=== PATIENT | female | born 1965 | race Hispanic/Latino ===

== ENCOUNTER 2017-05-10 14:29 | Emergency (ER) | payer MEDICARE ==
[~2017-05-10] VITALS: Ht 167.6 cm; Wt 100.0 kg
[~2017-05-10 14:29] MED LIST: ALEVE220 M1 OR; AMOXICILLIN500 MG OR; AUGMENTIN875TAB PO; CELEBREX100 MG PO; CELEBREX200 MG PO; FIORICET PO; LORTAB 5/3255 MG PO; NAPROSYN375 MG PO; NITROGLYCER0.4 MG SL; NO HOME MEDS; ROBITUSSIN AC10 ML OR; TORADOL OR; TYLENOL PM OR; ULTRAM50 MG OR; VICODIN OR; no home meds
[2017-05-10] MEDS ORDERED: LORTAB 10-325 M1 TAB PO (16:59)
[2017-05-10] MEDS ORDERED: FLEXERIL PO (16:59)
[2017-05-10 17:12] VITALS: BP 129/62
== END 2017-05-10 17:16 | disposition home or self-care (01) ==
LOC: ED 14:29
DX: S39.012A Strain of muscle, fascia and tendon of lower back, initial encounter (principal); M47.817 Spondylosis without myelopathy or radiculopathy, lumbosacral region; M54.42 Lumbago with sciatica, left side; I10 Essential (primary) hypertension

== ENCOUNTER 2017-08-27 21:01 | Inpatient (IN) | payer MEDICARE ==
[~2017-08-27] VITALS: Ht 167.6 cm; Wt 95.6 kg
[~2017-08-27 21:01] MED LIST changes: +FLEXERIL PO; +LORTAB 10-325 M1 TAB PO
[2017-08-27 21:53] LABS: HEMATOCRIT 43.9 % (37.0-47.0); HEMOGLOBIN 14.7 g/dl (12.0-16.0); IMMATURE GRANULOCYTES 0.9 % (0.0-1.0); MEAN CELL VOLUME 93.4 fL CALC (80.0-100.0); MEAN CORPUSCULAR HGB 31.3 pG CALC (26.0-32.0); MEAN CORPUSCULAR HGB CONC 33.5 g/L CALC (32.0-36.0); NEUT# 6.19 thou/uL (2.00-7.15); RED BLOOD COUNT 4.7 mill/uL (4.20-5.60); RED CELL DISTRI WIDTH 12.5 % (11.5-15.5)
[2017-08-27 22:04] LABS: ALBUMIN 4.9 g/dL (3.2-5.0); ALKALINE PHOSPHATASE 58 u/l (38-126); AMYLASE 66 u/l (30-110); ANION GAP 21 (6-22 (CALC)); BILIRUBIN, TOTAL 0.5 mg/dL (0.0-1.4); BUN 8 mg/dL (7-17); BUN/CREATININE RATIO 12 (12-20 (CALC)); CALCIUM 10.2 mg/dL (8.4-10.2); CARBON DIOXIDE 26 mmol/l (22-30); CHLORIDE 102 mmol/l (95-108); CREATININE 0.7 mg/dL (0.5-1.0); GFR > 60 ML/MIN (>=60 (CALC)); GFR FOR AFR.AMER. > 60 ML/MIN (>=60 (CALC)); GLUCOSE 85 mg/dL (65-105); LIPASE 172 u/l (23-300); POTASSIUM 4.2 mmol/l (3.5-5.1); SGOT/AST 73 u/l (14-36); SGPT/ALT 80 u/l (9-52); SODIUM 145 mmol/l (137-146); TOTAL PROTEIN 8.5 g/dL (6.3-8.2)
[2017-08-27 23:16] LABS: URINE BILIRUBIN - DIPSTICK NEGATIVE (NEGATIVE); URINE BLOOD DIPSTICK NEGATIVE (NEGATIVE); URINE CLARITY SLIGHT CLOUDY; URINE COLOR YELLOW; URINE GLUCOSE - DIPSTICK NEGATIVE (NEGATIVE); URINE KETONE NEGATIVE (NEGATIVE); URINE LEUK ESTERASE NEGATIVE (NEGATIVE); URINE NITRITE - DIPSTICK NEGATIVE (Negative); URINE PH 6.5 (4.5-8.0); URINE PROTEIN - DIPSTICK NEGATIVE (NEG-TRACE); URINE UROBILINOGEN - DIPSTICK 0.2 E.U./dL (0.2)
[2017-08-28 02:10] VITALS: BP 141/82
[2017-08-28 04:48] VITALS: BP 125/73
[2017-08-28 08:04] VITALS: BP 118/70
[2017-08-28] MEDS ORDERED: TYLENOL # 31 TA1 PO (13:29)
[2017-08-28 16:50] VITALS: BP 128/81
[2017-08-28 20:00] VITALS: BP 122/78
[2017-08-28 22:00] VITALS: BP 139/83
[2017-08-29 04:52] VITALS: BP 139/68
[2017-08-29 05:47] LABS: HEMATOCRIT 38.6 % (37.0-47.0); HEMOGLOBIN 12.6 g/dl (12.0-16.0); MEAN CELL VOLUME 95.3 fL CALC (80.0-100.0); MEAN CORPUSCULAR HGB 31.1 pG CALC (26.0-32.0); MEAN CORPUSCULAR HGB CONC 32.6 g/L CALC (32.0-36.0); RED BLOOD COUNT 4.05 mill/uL (4.20-5.60); RED CELL DISTRI WIDTH 12.9 % (11.5-15.5)
[2017-08-29 05:50] LABS: ANION GAP 15 (6-22 (CALC)); BUN 6 mg/dL (7-17); BUN/CREATININE RATIO 9 (12-20 (CALC)); CALCIUM 9.4 mg/dL (8.4-10.2); CARBON DIOXIDE 27 mmol/l (22-30); CHLORIDE 101 mmol/l (95-108); CREATININE 0.6 mg/dL (0.5-1.0); GFR > 60 ML/MIN (>=60 (CALC)); GFR FOR AFR.AMER. > 60 ML/MIN (>=60 (CALC)); GLUCOSE 99 mg/dL (65-105); POTASSIUM 4.1 mmol/l (3.5-5.1); SODIUM 139 mmol/l (137-146)
[2017-08-29 08:05] VITALS: BP 118/79
[2017-08-29 15:23] VITALS: BP 140/67
[2017-08-29 19:19] VITALS: BP 126/83
[2017-08-29 22:00] VITALS: BP 123/76
[2017-08-30 04:51] VITALS: BP 117/71
[2017-08-30 05:44] LABS: HEMATOCRIT 39.4 % (37.0-47.0); MEAN CELL VOLUME 94.3 fL CALC (80.0-100.0); MEAN CORPUSCULAR HGB 31.1 pG CALC (26.0-32.0); RED BLOOD COUNT 4.18 mill/uL (4.20-5.60); RED CELL DISTRI WIDTH 12.6 % (11.5-15.5)
[2017-08-30 08:09] VITALS: BP 119/56
[2017-08-30] MEDS ORDERED: TRAMADOL HCL50 MG PO (11:28)
[2017-08-30] MEDS ORDERED: FLORASTOR250 M1 PO (11:28)
[2017-08-30] MEDS ORDERED: CIPROFLOXACN500 MG PO (11:28)
[2017-08-30] MEDS ORDERED: METRONIDAZOL500 MG PO (11:28)
== END 2017-08-30 17:52 | disposition home or self-care (01) | DRG 392 ==
LOC: ED 21:01 → ED-I 08-28 01:10 → ED 08-28 01:25 → MS2 08-28 01:26
PROVIDERS: Emergency Medicine; ADMIT Internal Medicine; ATTEND Internal Medicine
DX: K57.32 Diverticulitis of large intestine without perforation or abscess without bleeding (principal); D72.829 Elevated white blood cell count, unspecified; G89.29 Other chronic pain; N83.201 Unspecified ovarian cyst, right side; N83.202 Unspecified ovarian cyst, left side; M54.9 Dorsalgia, unspecified

== ENCOUNTER 2018-02-19 04:13 | Emergency (ER) | payer MEDICARE, MEDICAID ==
[~2018-02-19] VITALS: Ht 167.6 cm; Wt 89.8 kg
[~2018-02-19 04:13] MED LIST changes: +CIPROFLOXACN500 MG PO; +FLORASTOR250 M1 PO; +METRONIDAZOL500 MG PO; +TRAMADOL HCL50 MG PO; +TYLENOL # 31 TA1 PO
[2018-02-19] MEDS ORDERED: NEURONTIN300 MG PO (04:21)
[2018-02-19] MEDS ORDERED: LORTAB 1010 MG PO (04:22)
[2018-02-19 05:50] LABS: HEMATOCRIT 41.5 % (37.0-47.0); HEMOGLOBIN 13.5 g/dl (12.0-16.0); MEAN CELL VOLUME 91.4 fL CALC (80.0-100.0); MEAN CORPUSCULAR HGB 29.7 pG CALC (26.0-32.0); MEAN CORPUSCULAR HGB CONC 32.5 g/L CALC (32.0-36.0); NEUT# 3.71 thou/uL (2.00-7.15); RED BLOOD COUNT 4.54 mill/uL (4.20-5.60); RED CELL DISTRI WIDTH 13.3 % (11.5-15.5)
[2018-02-19] MEDS ORDERED: TUSSIONEX PENNKI1 ML PO (05:54)
[2018-02-19 06:05] VITALS: BP 133/74
== END 2018-02-19 06:08 | disposition home or self-care (01) ==
LOC: ED 04:13
PROVIDERS: Family Medicine
DX: B34.9 Viral infection, unspecified (principal)

== ENCOUNTER 2019-02-08 05:22 | Emergency (ER) | payer MEDICARE, MEDICAID ==
[~2019-02-08] VITALS: Ht 167.6 cm; Wt 68.0 kg
[~2019-02-08 05:22] MED LIST changes: +LORTAB 1010 MG PO; +NEURONTIN300 MG PO; +TUSSIONEX PENNKI1 ML PO
[2019-02-08] MEDS ORDERED: HYDROCODONE/ACE1 T10 PO (05:38)
[2019-02-08] MEDS ORDERED: NEURONTIN800 MG PO (05:39)
[2019-02-08] MEDS ORDERED: DICLOXACILL250 MG PO (05:40)
[2019-02-08 06:42] VITALS: BP 138/69
== END 2019-02-08 06:42 | disposition left against medical advice (07) ==
LOC: ED 05:22
DX: T85.49XA Other mechanical complication of breast prosthesis and implant, initial encounter (principal); G89.18 Other acute postprocedural pain; Z91.19 Patient's noncompliance with other medical treatment and regimen

== ENCOUNTER 2019-05-31 00:40 | Emergency (ER) | payer MEDICARE, MEDICAID ==
[~2019-05-31] VITALS: Ht 167.6 cm; Wt 73.0 kg
[~2019-05-31 00:40] MED LIST changes: +DICLOXACILL250 MG PO; +HYDROCODONE/ACE1 T10 PO; +NEURONTIN800 MG PO
[2019-05-31 02:29] VITALS: BP 147/87
== END 2019-05-31 02:30 | disposition home or self-care (01) ==
LOC: ED 00:40
DX: I10 Essential (primary) hypertension (principal); M19.011 Primary osteoarthritis, right shoulder

== ENCOUNTER 2019-09-19 15:05 | Emergency (ER) | payer MEDICARE, MEDICAID ==
[~2019-09-19] VITALS: Ht 167.6 cm; Wt 72.0 kg
[2019-09-19 15:29] LABS: HEMATOCRIT 38.6 % (37.0-47.0); HEMOGLOBIN 12.7 g/dl (12.0-16.0); IMMATURE GRANULOCYTES 0.2 % (0.0-5.0); MEAN CELL VOLUME 88.9 fL CALC (80.0-100.0); MEAN CORPUSCULAR HGB 29.3 pG CALC (26.0-32.0); MEAN CORPUSCULAR HGB CONC 32.9 g/L CALC (32.0-36.0); NEUT# 5.14 thou/uL (2.00-7.15); RED BLOOD COUNT 4.34 mill/uL (4.20-5.60); RED CELL DISTRI WIDTH 12.1 % (11.5-15.5)
[2019-09-19] MEDS ORDERED: LORCET 5-325 MG1 TAB PO (15:31)
[2019-09-19 15:47] LABS: ANION GAP 11 (6-22 (CALC)); BUN 14 mg/dL (7-17); BUN/CREATININE RATIO 25 (12-20 (CALC)); CARBON DIOXIDE 27 mmol/l (22-30); CHLORIDE 102 mmol/l (95-108); CREATININE 0.6 mg/dL (0.5-1.0); GFR > 60 ML/MIN (>=60 (CALC)); GFR FOR AFR.AMER. > 60 ML/MIN (>=60 (CALC)); POTASSIUM 3.5 mmol/l (3.5-5.1); SODIUM 137 mmol/l (137-146)
[2019-09-19] MEDS ORDERED: VISTARIL25 MG PO (16:31)
[2019-09-19 16:50] VITALS: BP 143/89
== END 2019-09-19 16:50 | disposition home or self-care (01) ==
LOC: ED 15:05
PROVIDERS: Family Medicine
DX: R07.9 Chest pain, unspecified (principal); I10 Essential (primary) hypertension; Z63.8 Other specified problems related to primary support group

== ENCOUNTER 2019-10-14 22:02 | Emergency (ER) | payer MEDICARE, MEDICAID ==
[~2019-10-14] VITALS: Ht 167.6 cm; Wt 73.2 kg
[~2019-10-14 22:02] MED LIST changes: +LORCET 5-325 MG1 TAB PO; +VISTARIL25 MG PO
[2019-10-14 23:37] LABS: HEMATOCRIT 37.4 % (37.0-47.0); HEMOGLOBIN 12.1 g/dl (12.0-16.0); IMMATURE GRANULOCYTES 0.4 % (0.0-5.0); MEAN CORPUSCULAR HGB 29.4 pG CALC (26.0-32.0); MEAN CORPUSCULAR HGB CONC 32.4 g/L CALC (32.0-36.0); NEUT# 4.75 thou/uL (2.00-7.15); RED BLOOD COUNT 4.11 mill/uL (4.20-5.60); RED CELL DISTRI WIDTH 12.7 % (11.5-15.5)
[2019-10-14 23:45] LABS: ALBUMIN 4.5 g/dL (3.2-5.0); ALKALINE PHOSPHATASE 65 u/l (38-126); ANION GAP 12 (6-22 (CALC)); BILIRUBIN, TOTAL 0.3 mg/dL (0.0-1.4); BUN 15 mg/dL (7-17); BUN/CREATININE RATIO 25 (12-20 (CALC)); CARBON DIOXIDE 32 mmol/l (22-30); CHLORIDE 98 mmol/l (95-108); CREATININE 0.6 mg/dL (0.5-1.0); GFR > 60 ML/MIN (>=60 (CALC)); GFR FOR AFR.AMER. > 60 ML/MIN (>=60 (CALC)); POTASSIUM 3.6 mmol/l (3.5-5.1); SGOT/AST 34 u/l (14-36); SODIUM 138 mmol/l (137-146); TOTAL PROTEIN 8.3 g/dL (6.3-8.2)
[2019-10-15] MEDS ORDERED: FLEXERIL PO (00:17)
[2019-10-15] MEDS ORDERED: ULTRAM50 MG PO (00:17)
[2019-10-15 00:33] VITALS: BP 132/72
[2019-11-05] MEDS ORDERED: LYRICA150 MG PO (12:00)
== END 2019-10-15 03:19 | disposition home or self-care (01) ==
LOC: ED 22:02
DX: M62.838 Other muscle spasm (principal); F41.9 Anxiety disorder, unspecified; I10 Essential (primary) hypertension

== ENCOUNTER 2020-07-02 18:21 | Emergency (ER) | payer MEDICARE, MEDICAID ==
[~2020-07-02] VITALS: Ht 167.6 cm; Wt 84.1 kg
[~2020-07-02 18:21] MED LIST changes: +LYRICA150 MG PO; +ULTRAM50 MG PO
[2020-07-02] MEDS ORDERED: PREDNISONE10 M2 PO (18:37)
[2020-07-02] MEDS ORDERED: BANOPHEN25 MG PO (18:38)
[2020-07-02] MEDS ORDERED: ACID CONTROL MA20 MG PO (18:42)
[2020-07-02 18:47] LABS: HEMOGLOBIN 13.3 g/dl (12.0-16.0); IMMATURE GRANULOCYTES 0.6 % (0.0-5.0); MEAN CELL VOLUME 90.7 fL CALC (80.0-100.0); MEAN CORPUSCULAR HGB 28.7 pG CALC (26.0-32.0); MEAN CORPUSCULAR HGB CONC 31.7 g/dL CAL (32.0-36.0); NEUT# 5.45 thou/uL (2.00-7.15); RED BLOOD COUNT 4.63 mill/uL (4.20-5.60); RED CELL DISTRI WIDTH 13.2 % (11.5-15.5)
[2020-07-02 19:06] LABS: ALBUMIN 4.3 g/dL (3.2-5.0); ALKALINE PHOSPHATASE 65 u/l (38-126); BUN 18 mg/dL (7-17); BUN/CREATININE RATIO 33 (12-20 (CALC)); CHLORIDE 103 mmol/l (95-108); CREATININE 0.5 mg/dL (0.5-1.0); ETHYL ALCOHOL 0 mg/dl (0-30); GFR > 60 ML/MIN (>=60 (CALC)); GFR FOR AFR.AMER. > 60 ML/MIN (>=60 (CALC)); LIPASE 255 u/l (23-300); POTASSIUM 4.2 mmol/l (3.5-5.1); SGOT/AST 54 u/l (14-36); SODIUM 135 mmol/l (137-146); TOTAL PROTEIN 7.9 g/dL (6.3-8.2)
[2020-07-02 19:07] LABS: ANION GAP 12 (6-22 (CALC)); BILIRUBIN, TOTAL 0.4 mg/dL (0.0-1.4); CARBON DIOXIDE 24 mmol/l (22-30)
[2020-07-02 19:32] LABS: URINE BILIRUBIN - DIPSTICK NEGATIVE (NEGATIVE); URINE BLOOD DIPSTICK NEGATIVE (NEGATIVE); URINE COLOR YELLOW; URINE GLUCOSE - DIPSTICK NEGATIVE (NEGATIVE); URINE KETONE TRACE mg/dL (NEGATIVE); URINE LEUK ESTERASE NEGATIVE (NEGATIVE); URINE NITRITE - DIPSTICK NEGATIVE (Negative); URINE PROTEIN - DIPSTICK NEGATIVE (NEG-TRACE); URINE SPECIFIC GRAVITY 1.025
[2020-07-02] MEDS ORDERED: IMITREX100 M1 PO (21:13)
[2020-07-02 21:22] VITALS: BP 114/56
== END 2020-07-02 21:23 | disposition left against medical advice (07) ==
LOC: ED 18:21
PROVIDERS: Family Medicine
DX: G43.409 Hemiplegic migraine, not intractable, without status migrainosus (principal); I10 Essential (primary) hypertension; Z11.59 Encounter for screening for other viral diseases
CPT/HCPCS: J2060

== ENCOUNTER 2020-10-15 16:47 | Emergency (ER) | payer MEDICARE, MEDICAID ==
[~2020-10-15] VITALS: Ht 167.6 cm; Wt 100.0 kg
[~2020-10-15 16:47] MED LIST changes: +ACID CONTROL MA20 MG PO; +BANOPHEN25 MG PO; +IMITREX100 M1 PO; +PREDNISONE10 M2 PO
[2020-10-15 17:34] LABS: HEMATOCRIT 39.7 % (37.0-47.0); HEMOGLOBIN 12.7 g/dl (12.0-16.0); IMMATURE GRANULOCYTES 0.3 % (0.0-5.0); MEAN CELL VOLUME 91.7 fL CALC (80.0-100.0); MEAN CORPUSCULAR HGB 29.3 pG CALC (26.0-32.0); NEUT# 5.65 thou/uL (2.00-7.15); RED BLOOD COUNT 4.33 mill/uL (4.20-5.60); RED CELL DISTRI WIDTH 13.1 % (11.5-15.5)
[2020-10-15 17:37] LABS: URINE BILIRUBIN - DIPSTICK NEGATIVE (NEGATIVE); URINE BLOOD DIPSTICK NEGATIVE (NEGATIVE); URINE COLOR YELLOW; URINE GLUCOSE - DIPSTICK NEGATIVE (NEGATIVE); URINE KETONE NEGATIVE (NEGATIVE); URINE LEUK ESTERASE NEGATIVE (NEGATIVE); URINE NITRITE - DIPSTICK NEGATIVE (Negative); URINE PH 5.5 (4.5-8.0); URINE PROTEIN - DIPSTICK NEGATIVE (NEG-TRACE); URINE SPECIFIC GRAVITY >=1.030; URINE UROBILINOGEN - DIPSTICK 0.2 E.U./dL (0.2)
[2020-10-15 17:43] LABS: ALBUMIN 4.4 g/dL (3.2-5.0); ALKALINE PHOSPHATASE 61 u/l (38-126); AMYLASE 93 u/l (30-110); ANION GAP 14 (6-22 (CALC)); BILIRUBIN, TOTAL 0.3 mg/dL (0.0-1.4); BUN 16 mg/dL (7-17); BUN/CREATININE RATIO 23 (12-20 (CALC)); CARBON DIOXIDE 24 mmol/l (22-30); CHLORIDE 104 mmol/l (95-108); CREATININE 0.7 mg/dL (0.5-1.0); GFR > 60 ML/MIN (>=60 (CALC)); GFR FOR AFR.AMER. > 60 ML/MIN (>=60 (CALC)); LIPASE 178 u/l (23-300); SGOT/AST 44 u/l (14-36); SODIUM 138 mmol/l (137-146); TOTAL PROTEIN 8.1 g/dL (6.3-8.2)
[2020-10-15] MEDS ORDERED: HYDROXYCHLOR200 M2 PO (19:05)
[2020-10-15] MEDS ORDERED: ELIQUIS5 MG PO (19:05)
[2020-10-15] MEDS ORDERED: FOLIC ACID5 MG PO (19:08)
[2020-10-16 00:15] VITALS: BP 136/76
== END 2020-10-16 00:17 | disposition home or self-care (01) ==
LOC: ED 16:47
DX: R10.11 Right upper quadrant pain (principal); R06.02 Shortness of breath; R19.01 Right upper quadrant abdominal swelling, mass and lump; I10 Essential (primary) hypertension
CPT/HCPCS: Q9967; S0164

== ENCOUNTER 2020-11-28 20:47 | Emergency (ER) | payer MEDICARE, MEDICAID ==
[~2020-11-28 20:47] MED LIST changes: +ELIQUIS5 MG PO; +FOLIC ACID5 MG PO; +HYDROXYCHLOR200 M2 PO
== END 2020-11-28 21:10 | disposition left against medical advice (07) ==
LOC: ED 20:47 → LWOBS 21:09 → ED 21:10
DX: Z91.19 Patient's noncompliance with other medical treatment and regimen (principal)

== ENCOUNTER 2021-06-24 12:17 | Emergency (ER) | payer MEDICARE, MEDICAID ==
[2021-06-24 13:13] LABS: URINE BILIRUBIN - DIPSTICK NEGATIVE (NEGATIVE); URINE BLOOD DIPSTICK NEGATIVE (NEGATIVE); URINE COLOR YELLOW; URINE GLUCOSE - DIPSTICK NEGATIVE (NEGATIVE); URINE KETONE NEGATIVE (NEGATIVE); URINE LEUK ESTERASE NEGATIVE (NEGATIVE); URINE PH 6.5 (4.5-8.0); URINE PROTEIN - DIPSTICK NEGATIVE (NEG-TRACE); URINE SPECIFIC GRAVITY 1.025
[2021-06-24 13:14] LABS: HEMATOCRIT 38.3 % (37.0-47.0); HEMOGLOBIN 11.8 g/dl (12.0-16.0); IMMATURE GRANULOCYTES 0.3 % (0.0-5.0); MEAN CELL VOLUME 91.8 fL CALC (80.0-100.0); MEAN CORPUSCULAR HGB 28.3 pG CALC (26.0-32.0); MEAN CORPUSCULAR HGB CONC 30.8 g/dL CAL (32.0-36.0); NEUT# 1.89 thou/uL (2.00-7.15); RED BLOOD COUNT 4.17 mill/uL (4.20-5.60); RED CELL DISTRI WIDTH 13.7 % (11.5-15.5)
[2021-06-24 13:35] LABS: D-DIMER 0.72 mg/L (0.19-0.60)
[2021-06-24 13:36] LABS: URINE NITRITE - DIPSTICK NEGATIVE (Negative)
[2021-06-24 13:38] LABS: ACT PARTIAL THROMBO TIME 27.8 SECONDS (20.0-32.5); ALKALINE PHOSPHATASE 61 u/l (38-126); AMYLASE 78 u/l (30-110); ANION GAP 11 (6-22 (CALC)); BUN 12 mg/dL (7-17); BUN/CREATININE RATIO 29 (12-20 (CALC)); CARBON DIOXIDE 23 mmol/l (22-30); CHLORIDE 107 mmol/l (95-108); CREATININE 0.4 mg/dL (0.5-1.0); GFR > 60 ML/MIN (>=60 (CALC)); GFR FOR AFR.AMER. > 60 ML/MIN (>=60 (CALC)); LIPASE 171 u/l (23-300); POTASSIUM 3.5 mmol/l (3.5-5.1); PROTHROMBIN TIME 10.3 SECONDS (9.0-12.5); SODIUM 137 mmol/l (137-146); TOTAL PROTEIN 6.6 g/dL (6.3-8.2)
[2021-06-24 13:43] LABS: ALBUMIN 3.4 g/dL (3.2-5.0); BILIRUBIN, TOTAL 0.1 mg/dL (0.0-1.4); SGOT/AST 171 u/l (14-36)
[2021-06-24 13:57] VITALS: BP 147/77
== END 2021-06-24 13:58 | disposition left against medical advice (07) ==
LOC: ED 12:17
DX: U07.1 COVID-19 (principal); J10.1 Influenza due to other identified influenza virus with other respiratory manifestations; R74.8 Abnormal levels of other serum enzymes; I10 Essential (primary) hypertension; M19.90 Unspecified osteoarthritis, unspecified site; Z91.19 Patient's noncompliance with other medical treatment and regimen

== ENCOUNTER 2021-07-01 12:09 | Observation (INO) | payer MEDICARE, MEDICAID ==
[2021-07-01 14:06] LABS: URINE BILIRUBIN - DIPSTICK NEGATIVE (NEGATIVE); URINE BLOOD DIPSTICK NEGATIVE (NEGATIVE); URINE COLOR YELLOW; URINE GLUCOSE - DIPSTICK NEGATIVE (NEGATIVE); URINE KETONE NEGATIVE (NEGATIVE); URINE LEUK ESTERASE NEGATIVE (NEGATIVE); URINE PROTEIN - DIPSTICK NEGATIVE (NEG-TRACE)
[2021-07-01 14:09] LABS: URINE NITRITE - DIPSTICK NEGATIVE (Negative)
[2021-07-01 14:26] LABS: IMMATURE GRANULOCYTES 0.5 % (0.0-5.0); MEAN CELL VOLUME 88.5 fL CALC (80.0-100.0); MEAN CORPUSCULAR HGB 28.3 pG CALC (26.0-32.0); MEAN CORPUSCULAR HGB CONC 31.9 g/dL CAL (32.0-36.0); NEUT# 3.19 thou/uL (2.00-7.15); RED BLOOD COUNT 5.06 mill/uL (4.20-5.60); RED CELL DISTRI WIDTH 13.4 % (11.5-15.5)
[2021-07-01 14:31] LABS: ALKALINE PHOSPHATASE 89 u/l (38-126); BUN 10 mg/dL (7-17); BUN/CREATININE RATIO 17 (12-20 (CALC)); CHLORIDE 95 mmol/l (95-108); CREATININE 0.6 mg/dL (0.5-1.0); GFR > 60 ML/MIN (>=60 (CALC)); GFR FOR AFR.AMER. > 60 ML/MIN (>=60 (CALC)); SGOT/AST 147 u/l (14-36); SODIUM 132 mmol/l (137-146)
[2021-07-01 14:35] LABS: ANION GAP 10 (6-22 (CALC)); BILIRUBIN, TOTAL 0.5 mg/dL (0.0-1.4); CARBON DIOXIDE 31 mmol/l (22-30); HEMATOCRIT 44.8 % (37.0-47.0); HEMOGLOBIN 14.3 g/dl (12.0-16.0)
[2021-07-01 16:38] LABS: C-REACTIVE PROTEIN 5.5 mg/dL (0-0.9)
[2021-07-02 06:30] LABS: HEMATOCRIT 41.5 % (37.0-47.0); HEMOGLOBIN 13.3 g/dl (12.0-16.0); IMMATURE GRANULOCYTES 0.6 % (0.0-5.0); MEAN CELL VOLUME 88.3 fL CALC (80.0-100.0); MEAN CORPUSCULAR HGB 28.3 pG CALC (26.0-32.0); NEUT# 2.13 thou/uL (2.00-7.15); RED BLOOD COUNT 4.7 mill/uL (4.20-5.60); RED CELL DISTRI WIDTH 13.1 % (11.5-15.5)
[2021-07-02 06:45] LABS: ALBUMIN 3.5 g/dL (3.2-5.0); ALKALINE PHOSPHATASE 78 u/l (38-126); ANION GAP 14 (6-22 (CALC)); BILIRUBIN, TOTAL 0.4 mg/dL (0.0-1.4); BUN 8 mg/dL (7-17); BUN/CREATININE RATIO 21 (12-20 (CALC)); C-REACTIVE PROTEIN 4.4 mg/dL (0-0.9); CARBON DIOXIDE 25 mmol/l (22-30); CHLORIDE 101 mmol/l (95-108); CREATININE 0.4 mg/dL (0.5-1.0); GFR > 60 ML/MIN (>=60 (CALC)); GFR FOR AFR.AMER. > 60 ML/MIN (>=60 (CALC)); POTASSIUM 4.5 mmol/l (3.5-5.1); SGOT/AST 89 u/l (14-36); SODIUM 136 mmol/l (137-146)
[2021-07-02 07:00] VITALS: BP 132/86
[2021-07-02 07:30] VITALS: BP 135/89
[2021-07-02] MEDS ORDERED: DOXYCYCL HYC100 MG PO (10:04)
[2021-07-02] MEDS ORDERED: DEXAMETHASON6 MG PO (10:04)
== END 2021-07-02 11:17 | disposition home or self-care (01) ==
LOC: ED 12:09 → ED-I 15:50 → ED 16:16 → ED-I 16:17
PROVIDERS: Family Medicine; ADMIT Internal Medicine; ATTEND Internal Medicine
DX: U07.1 COVID-19 (principal); J12.82 Pneumonia due to coronavirus disease 2019; R09.02 Hypoxemia; I10 Essential (primary) hypertension; E87.1 Hypo-osmolality and hyponatremia; R74.8 Abnormal levels of other serum enzymes; M19.90 Unspecified osteoarthritis, unspecified site; Z79.01 Long term (current) use of anticoagulants
CPT/HCPCS: J1100; J1650

== ENCOUNTER 2021-08-05 09:24 | Emergency (ER) | payer MEDICARE, MEDICAID ==
[~2021-08-05] VITALS: Ht 167.6 cm; Wt 75.0 kg
[~2021-08-05 09:24] MED LIST changes: +DEXAMETHASON6 MG PO; +DOXYCYCL HYC100 MG PO
[2021-08-05 11:02] LABS: HEMATOCRIT 40.9 % (37.0-47.0); HEMOGLOBIN 12.9 g/dl (12.0-16.0); IMMATURE GRANULOCYTES 0.2 % (0.0-5.0); MEAN CELL VOLUME 92.3 fL CALC (80.0-100.0); MEAN CORPUSCULAR HGB 29.1 pG CALC (26.0-32.0); MEAN CORPUSCULAR HGB CONC 31.5 g/dL CAL (32.0-36.0); NEUT# 3.68 thou/uL (2.00-7.15); RED BLOOD COUNT 4.43 mill/uL (4.20-5.60)
[2021-08-05 11:14] LABS: ALBUMIN 4.1 g/dL (3.2-5.0); ALKALINE PHOSPHATASE 58 u/l (38-126); ANION GAP 14 (6-22 (CALC)); BILIRUBIN, TOTAL 0.3 mg/dL (0.0-1.4); BUN 15 mg/dL (7-17); BUN/CREATININE RATIO 28 (12-20 (CALC)); CARBON DIOXIDE 27 mmol/l (22-30); CHLORIDE 102 mmol/l (95-108); CREATININE 0.6 mg/dL (0.5-1.0); GFR > 60 ML/MIN (>=60 (CALC)); GFR FOR AFR.AMER. > 60 ML/MIN (>=60 (CALC)); POTASSIUM 3.9 mmol/l (3.5-5.1); SGOT/AST 73 u/l (14-36); SODIUM 139 mmol/l (137-146); TOTAL PROTEIN 7.6 g/dL (6.3-8.2)
[2021-08-05] MEDS ORDERED: GABAPENTIN600 MG PO (12:39)
[2021-08-05 13:30] VITALS: BP 123/68
== END 2021-08-05 13:38 | disposition home or self-care (01) ==
LOC: ED 09:24
PROVIDERS: Family Medicine
DX: G62.9 Polyneuropathy, unspecified (principal); I10 Essential (primary) hypertension; M54.5 Low back pain; G89.29 Other chronic pain

== ENCOUNTER 2022-06-03 13:25 | Emergency (ER) | payer MEDICARE, MEDICAID ==
[2022-06-03] VITALS (9 sets, daily range): BP systolic 152–201; BP diastolic 68–98
[~2022-06-03] VITALS: Ht 167.6 cm; Wt 80.0 kg
[~2022-06-03 13:25] MED LIST changes: +GABAPENTIN600 MG PO
[2022-06-03 14:09] LABS: HEMATOCRIT 41.6 % (37.0-47.0); HEMOGLOBIN 13.1 g/dl (12.0-16.0); IMMATURE GRANULOCYTES 0.2 % (0.0-5.0); MEAN CORPUSCULAR HGB CONC 31.5 g/dL CAL (32.0-36.0); NEUT# 6.84 thou/uL (2.00-7.15); RED BLOOD COUNT 4.52 mill/uL (4.20-5.60)
[2022-06-03 14:24] LABS: ALBUMIN 4.3 g/dL (3.2-5.0); ALKALINE PHOSPHATASE 94 u/l (38-126); ANION GAP 9 (6-22 (CALC)); BILIRUBIN, TOTAL 0.3 mg/dL (0.0-1.4); BUN 18 mg/dL (7-17); BUN/CREATININE RATIO 24 (12-20 (CALC)); CARBON DIOXIDE 30 mmol/l (22-30); CHLORIDE 103 mmol/l (95-108); CREATININE 0.8 mg/dL (0.5-1.0); GFR FOR AFR.AMER. > 60 ML/MIN (>=60 (CALC)); GFR OTHER RACES > 60 ML/MIN (>=60 (CALC)); LIPASE 211 u/l (23-300); POTASSIUM 3.8 mmol/l (3.5-5.1); SGOT/AST 65 u/l (14-36); SODIUM 139 mmol/l (137-146); TOTAL PROTEIN 7.8 g/dL (6.3-8.2)
[2022-06-03 16:45] LABS: URINE BILIRUBIN - DIPSTICK NEGATIVE (NEGATIVE); URINE BLOOD DIPSTICK MODERATE (NEGATIVE); URINE COLOR YELLOW; URINE GLUCOSE - DIPSTICK NEGATIVE (NEGATIVE); URINE KETONE NEGATIVE (NEGATIVE); URINE LEUK ESTERASE NEGATIVE (NEGATIVE); URINE NITRITE - DIPSTICK NEGATIVE (Negative); URINE PROTEIN - DIPSTICK NEGATIVE (NEG-TRACE); URINE UROBILINOGEN - DIPSTICK 0.2 E.U./dL (0.2)
[2022-06-03 16:52] LABS: URINE SQUAMOUS EPITHELIAL CELL FEW EPI/hpf (0-FEW); URINE WBC 0-2 WBC/hpf (0-5)
[2022-06-03] MEDS ORDERED: ZOFRAN4 MG/TAB PO (17:31)
== END 2022-06-03 19:14 | disposition home or self-care (01) ==
LOC: ED 13:25
PROVIDERS: Family Medicine
DX: R10.31 Right lower quadrant pain (principal); I10 Essential (primary) hypertension
CPT/HCPCS: Q9967

== ENCOUNTER 2022-08-11 19:46 | Emergency (ER) | payer MEDICARE, MEDICAID ==
[~2022-08-11 19:46] MED LIST changes: +ZOFRAN4 MG/TAB PO
== END 2022-08-11 19:53 | disposition left against medical advice (07) ==
LOC: ED 19:46 → LWOBS 19:53
DX: Z53.21 Procedure and treatment not carried out due to patient leaving prior to being seen by health care provider (principal)

== ENCOUNTER → 2023-01-18 | Emergency (ER) | payer MEDICARE, MEDICAID ==
[~2023-01-18] VITALS: Ht 167.6 cm; Wt 72.6 kg
[2023-01-18] VITALS (8 sets, daily range): BP systolic 118–140; BP diastolic 68–92
[2023-01-18 15:20] LABS: BASO% 0.4 % (0-3); EOS% 1.8 % (0-8); HEMATOCRIT 44.4 % (37.0-47.0); IMMATURE GRANULOCYTES 0.1 % (0.0-5.0); LYMPH% 27.6 % (15-41); MEAN CELL VOLUME 90.4 fL CALC (80.0-100.0); MEAN CORPUSCULAR HGB 28.5 pG CALC (26.0-32.0); MEAN CORPUSCULAR HGB CONC 31.5 g/dL CAL (32.0-36.0); MONO% 6.4 % (2-13); NEUT# 5.24 thou/uL (2.00-7.15); NEUT% 63.7 % (42-76); RED BLOOD COUNT 4.91 mill/uL (4.20-5.60); RED CELL DISTRI WIDTH 12.6 % (11.5-15.5)
[2023-01-18 15:40] LABS: ALBUMIN 4.1 g/dL (3.2-5.0); ALKALINE PHOSPHATASE 74 u/l (38-126); ANION GAP 9 (6-22 (CALC)); CARBON DIOXIDE 29 mmol/l (22-30); CHLORIDE 105 mmol/l (95-108); LIPASE 198 u/l (23-300); POTASSIUM 3.6 mmol/l (3.5-5.1); SGOT/AST 35 u/l (14-36); SODIUM 139 mmol/l (137-146); TOTAL PROTEIN 7.4 g/dL (6.3-8.2)
[2023-01-18 15:45] LABS: BUN 15 mg/dL (7-17); BUN/CREATININE RATIO 24 (12-20 (CALC)); CREATININE 0.6 mg/dL (0.5-1.0); GFR FOR AFR.AMER. > 60 ML/MIN (>=60 (CALC)); GFR OTHER RACES > 60 ML/MIN (>=60 (CALC))
[2023-01-18 15:47] LABS: BILIRUBIN, TOTAL 0.1 mg/dL (0.02-1.3)
[2023-01-18 16:16] LABS: URINE BILIRUBIN - DIPSTICK NEGATIVE (NEGATIVE); URINE BLOOD DIPSTICK NEGATIVE (NEGATIVE); URINE COLOR YELLOW; URINE GLUCOSE - DIPSTICK NEGATIVE (NEGATIVE); URINE KETONE NEGATIVE (NEGATIVE); URINE LEUK ESTERASE NEGATIVE (NEGATIVE); URINE PROTEIN - DIPSTICK NEGATIVE (NEG-TRACE); URINE SPECIFIC GRAVITY >=1.030; URINE UROBILINOGEN - DIPSTICK 0.2 E.U./dL (0.2)
[2023-01-18 16:30] LABS: URINE NITRITE - DIPSTICK NEGATIVE (Negative)
== END | disposition home or self-care (01) ==
LOC: ED 14:40
PROVIDERS: Family Medicine
DX: R11.2 Nausea with vomiting, unspecified (principal); R10.9 Unspecified abdominal pain; I10 Essential (primary) hypertension